=== PATIENT | male | born 1965 | race Caucasian/White ===

== ENCOUNTER 2016-06-13 09:22 | Inpatient (IN) | payer OTHER ==
[~2016-06-13] VITALS: Ht 179.1 cm; Wt 61.6 kg
[~2016-06-13 09:22] MED LIST: SENOKOT S1 TAB PO; TYLENOL DPS325 MG PO; ULTRAM DPS50 MG PO; XARELTO10 MG PO
--- NOTE | 2016-06-21 01:22 | HP ---
ADMIT: 06/13/2016 RM/LOC: 525 [facility] MR#: [id number] 2620 [facility] [address] [place] [phone] [place] [address] [place] [address] History and Physical SEX: M AGE: 51 : 1965 DATE OF SERVICE: CHIEF COMPLAINT: Ileus. HISTORY OF PRESENT ILLNESS: Lul is a delightful 51-year-old, white gentleman with metastatic rectal carcinoma diagnosed in December of 2015. He has known extensive metastatic disease to the liver. He has been working closely with Dr. Mooney with his ongoing treatment. He had been on 1 chemotherapy regimen, but it was ineffective. He was subsequently changed, and he is currently undergoing his chemo at this time. He has been doing relatively well other than chronic fatigue issues. He did develop bilateral PE and DVT back in January of 2016 and was treated with a short course of Lovenox and subsequently now he is on Xarelto. He has been able to work and has done relatively well. He receives iron infusions with Feraheme. He has some mild weight loss, weakness, and neuropathy, but all are manageable. On the day of admission, he notes that he had not been feeling well for the last couple of days. Energy is really zapped. On the day of admission, he had a rather abrupt onset of abdominal pain. This was associated with a very large emesis this morning. He presented to the emergency room for evaluation. CT scan performed verbally showed that he has what appears to be an ileus rather than obstruction. He is admitted at this time for myself covering with Dr. Mooney for IV fluids and continued management. After vomiting, he does feel better. He still has a little right upper quadrant pain from the liver mets and capsular pain, but otherwise things are tolerable. He did receive low dose of Dilaudid 0.5 mg in the emergency room that was rather affective. PAST MEDICAL HISTORY: Rectal carcinoma on 01/10 with mets to the liver after presenting with rectal bleeding, colonoscopy on 01/28/2016 showed a mass at 10 cm from the anal verge, biopsy with tubulovillous adenoma and high-grade dysplasia, CT scan abdomen and pelvis on 01/28/2016 with extensive replacement of the liver with metastatic involvement, liver biopsy on 02/03/2016 consistent with metastatic moderately differentiated adenocarcinoma of the rectum, PET scan on 02/04/2016 with rectal wall thickening and liver mets, baseline CEA 1643, KRAS mutation testing was pending, and I do not really see the results, ongoing chemotherapy with Dr. Mooney, on second-line. MEDICATIONS: Xarelto 20 mg daily. ALLERGIES: NONE. SOCIAL HISTORY: . Four children. His oldest daughter is a nurse practitioner at school. Next, his son is in college at [employer]. His third child, which is a son is a senior in high school and is going to be going to college next year. The final child is an adopted daughter, who is a current 5th grader. Nonsmoker. Rare alcohol. 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 FAMILY HISTORY: No colon cancer. No PEs, although his mother might have had a DVT with one of her pregnancies. No diabetes. Brother and father as well ADMIT: 06/13/2016 RM/LOC: 525 [facility] MR#: [id number] [address] [phone] [place] [address] [place] [address] History and Physical SEX: M AGE: 51 : 1965 as mother with hypertension. No heart disease. REVIEW OF SYSTEMS: He has had some weight loss, neuropathic changes in hands and feet. Continues within a great outlook and is wanting aggressive therapy at this point. PHYSICAL EXAMINATION: VITAL SIGNS: Blood pressure 105/74, pulse 99, temp 96.5, respirations 11, and weight is 143. GENERAL: This is a gentleman with obvious weight loss. He is not jaundiced. Skin is warm to the touch. HEENT: Normocephalic, atraumatic. Anicteric. Mucous membranes appear moist. NECK: Supple without JVD. LUNGS: Clear to auscultation. CARDIOVASCULAR: Regular. ABDOMEN: Tender right upper quadrant and just generalized with deep palpation. GENITOURINARY/RECTAL: Deferred. EXTREMITIES: Without cyanosis, clubbing, or edema. Weight loss noted. LABORATORY DATA: Potassium of 3.6, otherwise labs look pretty unremarkable other than a mild pancytopenia. IMPRESSION: 1. Ileus - verbal on the CT scan from the ER. 2. Rectal cancer on 01/10 with metastasis to the liver, second-line chemotherapy per Dr. Mooney. 3. Nephrolithiasis. 4. Bilateral pulmonary embolism/deep venous thrombosis on 02/10 - Xarelto. 5. Anemia of chronic disease and chronic blood loss. 6. Hypokalemia. 7. Nausea and vomiting. 8. Weight loss. 9. Malnourished due to cancer. ADMIT: 06/13/2016 RM/LOC: 525 [facility] MR#: [id number] [address] [place] [phone] [place] [address] History and Physical SEX: M AGE: 51 : 1965 DISCUSSION: We will go ahead and give him some bowel rest by making him n.p.o. and giving him TPN. We will change the Xarelto over to Lovenox at 60 b.i.d., which is a little bit less than he went home on, but he has had what appears to be some weight loss. Also, need to watch with his bleeding. Supplement potassium and otherwise will follow closely with Dr. Mooney. PLAN: See chart. Joana Wolfe MD/ adonis JOB #: [id number] CC: Joana Wolfe, Attending Physician Joana Wolfe, Family Physician MD Michael Telles PA-C
--- NOTE | 2016-07-07 10:44 | CO ---
ADMIT: 06/13/2016 RM/LOC: 525 [facility] MR#: [id number] 2620 [facility] [address] [place] [phone] [place] [address] [place] [address] Consultation SEX: M AGE: 51 : 1965 DATE OF CONSULTATION: 06/17/2016 ATTENDING PHYSICIAN: Joana Wolfe CONSULTING PHYSICIAN: Dale Bravo MD CHIEF COMPLAINT: Nausea, abdominal distention, probable bowel obstruction, known metastatic colorectal cancer. HISTORY OF PRESENT ILLNESS: This is a pleasant 51-year-old male patient, well known to me and my surgical group for his fairly recent diagnosis of metastatic colorectal cancer. The patient has been undergoing chemotherapy, which really did not have a great response to his chemo, so as recently as, I believe 14 days ago, he was started on a different regimen which included Avastin. The patient was admitted on Tuesday, so about 4 days ago with complaints of worsening abdominal pain and distention. He had a CT scan done on Tuesday on the , and another scan done today. The scan today shows worsening small bowel distention and some worsening thickening of the small bowel, increased ascites, and probable obstruction of his colon at the level of the tumor in his rectum. He has been passing some liquid stool but is pretty minimal amount. He is more bloated, more nauseated, more uncomfortable, particularly in his epigastric region. He really has not vomited yet, has not really eaten anything of substance for almost a week now. He has been on TPN since he has been in the hospital. He has been pretty neutropenic and is receiving, I believe, some Neupogen for that and his white count was finally at around 3000 today. He has been on full strength Lovenox for recent DVT also, that just was held tonight, so I was asked to see him in surgical consultation to discuss possible surgical options for this bowel obstruction, which appears to be worsening. PAST MEDICAL HISTORY: All well outlined on the chart. ASSESSMENT: Worsening small bowel obstruction with worsening thickening of small bowel, probable obstruction at the colorectal tumor in the rectosigmoid region. PLAN: I had a long discussion with the patient and his and several other family members this afternoon regarding treatment options. They are realistic and understands the situation he is in and this is not a curable cancer. In fact, he has really not responded well to the chemo all along and the tumor really has not responded all along. He has more ill in this hospitalization and more uncomfortable and understands he cannot really keep going on like this either. We discussed surgical options, exploratory laparotomy with probable rectosigmoid resection versus just diverting colostomy versus possible small bowel resection if he has metastatic lesions causing obstruction elsewhere. We talked about the potential complications of that to be wound-healing problems, problems with the colostomy, potential rectal stump blow out, given the Avastin that he just received a couple of weeks ago. Things just will not heal very well or normally with that also increased risk ADMIT: 06/13/2016 RM/LOC: 525 [facility] MR#: [id number] [address] [place] [phone] [place] [address] Consultation SEX: M AGE: 51 : 1965 of bleeding. He has a DVT and has been on Lovenox for that but he would likely need an IVC filter, prior to surgery to help reduce the risk of PE. He is pretty frail at this point, and so he understands that he is at high risk for the operation, although I think we get him through the operation okay. It is just a situation of getting through the recovery process afterwards in the healing process. He is realistic and understands that surgery ultimately will not increase his length of survival. In fact, it will limit or delay him getting back on chemotherapy. I think as of today, he is focusing a little bit more on quality of life rather than his length of survival and so at this point, he does not want to go through an operation. He is not interested in surgery. He is agreeable to an NG tube to help alleviate some of the discomfort and distention of his abdomen but he wants to hold off on surgical intervention at this time. I think that is a reasonable decision and at this point, we will just check on him again tomorrow and re-evaluate things. I have discussed this case also Dr. Wolfe as well as with Dr. Mooney, so they are aware of the discussion that I had with him. Dale Bravo MD/ adonis JOB #: [id number] CC: Joana Wolfe, Attending Physician Joana Wolfe, Family Physician
--- NOTE | 2016-07-09 12:16 | CO ---
ADMIT: 06/13/2016 RM/LOC: 525 [facility] MR#: [id number] [address] [facility] [address] [place] [phone] [place] [address] [place] [address] Consultation SEX: M AGE: 51 : 1965 DATE OF CONSULTATION: 06/13/2016 ATTENDING PHYSICIAN: Joana Wolfe CONSULTING PHYSICIAN: Del Mooney MD REASON FOR CONSULTATION: Metastatic colon cancer, abdominal pain. 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 He has had a very unfortunate course where basically he has not responded to any therapy thus far. He was found have a rectal tumor that was invasive adenocarcinoma. It had been causing some rectal bleeding that led to his original diagnosis back in January 2016. On his staging studies, he was found to have extensive liver metastases. We treated him with up-front FOLFOX therapy with basically stable disease after 4 cycles, and then after 8 cycles had evidence of fairly significant disease progression. This was discovered just 2 weeks ago. I therefore switched his treatment to FOLFIRI and Avastin, which he received for the first time on 06/04/2016. He now presents to the emergency room with fairly severe abdominal pain. I have been talking with him several times over the weekend now with his complaints and he finally was willing to come to the emergency room. Here, he underwent a CT scan and was found to have an ileus. He is therefore being admitted to Dr. Wolfe's service for further care. He is really quite uncomfortable. He has had some mild nausea and vomiting here in the emergency room. He denies any obvious bleeding. He has remained on his Xarelto therapy for his prior pulmonary embolism. At this point, he still wants to be treated with aggressive care. PAST MEDICAL HISTORY: 1. Pulmonary embolism and DVT, treated now with chronic anticoagulation with Xarelto. 2. Rectal cancer. MEDICATIONS: Reviewed in his chart. ALLERGIES: REVIEWED IN HIS CHART. SOCIAL HISTORY: The patient is . He has 4 children. 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 FAMILY HISTORY: He is not aware of any malignancies in his family. REVIEW OF SYSTEMS: See HPI. Other complete review of systems was obtained and was negative. PHYSICAL EXAMINATION: VITAL SIGNS: Temp 97, pulse 73, respirations 18, blood pressure 113/77. GENERAL: The patient is in no acute distress, although with moving around, he ADMIT: 06/13/2016 RM/LOC: 525 [facility] MR#: [id number] [address] [place] [phone] [place] [address] Consultation SEX: M AGE: 51 : 1965 does have some discomfort. He is alert and oriented and provides me a good history. HEENT: Mucous membranes are moist. No oral lesions are seen. Extraocular muscles are intact. Pupils are reactive and symmetrical. NECK: Without adenopathy or JVD. HEART: Regular rate and rhythm without murmur. LUNGS: Clear to auscultation bilaterally without any crackles or wheezes. ABDOMEN: Soft but distended and tender throughout with still some positive bowel sounds. EXTREMITIES: No edema, rashes, lesions or adenopathy is appreciated. LABORATORY DATA: Metabolic panel is unremarkable with an albumin of 1.5 and slight elevation in his alkaline phosphatase of 299. White count is 2.9, hemoglobin 11.5, platelets 127, neutrophils 2.3. CT scan is reviewed. IMPRESSION AND RECOMMENDATIONS: Abdominal pain with ileus in the setting of metastatic colon cancer, on recent chemotherapy with FOLFIRI and Avastin. I talked to the patient at length today. I am certainly worried about his symptoms, but at least the CT scan does not suggest a mechanical obstruction. He still has his rectal tumor in place and surgical intervention will be quite tricky with his recent Avastin. We will follow his blood counts closely. We will give him just basically aggressive supportive care measures for treatment of his ileus. His next chemotherapy is due on Tuesday, but this will possibly be delayed. He still is in the mindset of being aggressive with his care. I appreciate this consultation. Del Mooney MD/ adonis JOB #: [id number] CC: Joana Wolfe, Attending Physician Joana Wolfe, Family Physician
--- NOTE | 2016-07-25 17:08 | ER ---
ADMIT: 06/13/2016 RM/LOC: 517 [facility] MR#: [id number] [address] [facility] [address] [place] [phone] [place] [address] [place] [address] Emergency Room Report SEX: M AGE: 51 : 1965 DATE: 06/13/2016 HISTORY OF PRESENT ILLNESS: A 51-year-old who comes to the Emergency Department with chief complaint of abdominal pain times past several days of sudden onset. He has had a large emesis and then the pain resolved. He has a history of metastatic colon cancer. He initially described the pain as severe, is currently mild. It is diffuse across the abdomen. There is nausea and vomiting associated with it. He had recently been seen by Dr. Mooney. PAST MEDICAL HISTORY: Metastatic colon cancer. PHYSICAL EXAMINATION: GENERAL: Reveals a 51-year-old gentleman, in mild amount of distress. HEAD: Normocephalic. LUNGS: Clear to auscultation. CARDIOVASCULAR: Regular rate and rhythm. ABDOMEN: Diffusely tender. Generalized with increased bowel tones. No bloating was noted. SKIN: Unremarkable. 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 LABORATORY DATA: Pertinent lab was white count of 2.9, hemoglobin 11.5, platelets 97,000, potassium 3.6, alkaline phosphatase was 289, glucose was 16, lactic acid 1.7. CT revealed an ileus. The patient was admitted with the same. DIAGNOSIS: Ileus. Antonio Mata MD/ adonis JOB #: [id number] CC: Joana Wolfe MD, Attending Physician Joana Wolfe MD, Family Physician
--- NOTE | 2016-07-31 09:22 | DS ---
ADMIT: 06/13/2016 RM/LOC: 517 [facility] MR#: [id number] 2620 [facility] [address] [place] [phone] [place] [address] [place] [address] Discharge Summary SEX: M AGE: 51 : 1965 ADMISSION DATE: 06/13/2016 DISCHARGE DATE: 06/26/2016 FINAL DIAGNOSES: 1. Ileus. 2. Metastatic colon cancer. 3. Severe protein calorie malnutrition. 4. Polyneuropathy. 5. Neutropenia. 6. Anemia. 7. Hypokalemia. 8. History of PE, DVT (pulmonary embolism, deep venous thrombosis). HOSPITAL COURSE: The patient was admitted. Was treated for his ileus and then after symptoms did not improve, it was decided the patient really was not a candidate for any further treatment. He was kept comfortable. He had palliative care. Was kept on IV continuous pain medication. Overall, was stable and then did on 06/26. Sylvia Morales MD/ ajf JOB #: [id number] CC: Joana Wolfe MD, Attending Physician Joana Wolfe MD, Family Physician
== END 2016-06-26 18:06 | disposition expired | DRG 374 ==
LOC: ER 09:22 → 5MS 11:53
PROVIDERS: ADMIT Internal Medicine
PROC: 3E0436Z Introduction of Nutritional Substance into Central Vein, Percutaneous Approach (ICD-10-PCS; principal; 2016-06-13)
DX: C19 Malignant neoplasm of rectosigmoid junction (principal); E43 Unspecified severe protein-calorie malnutrition; C78.7 Secondary malignant neoplasm of liver and intrahepatic bile duct; Z51.5 Encounter for palliative care; G62.9 Polyneuropathy, unspecified; D70.9 Neutropenia, unspecified; D63.0 Anemia in neoplastic disease; E87.6 Hypokalemia; Z86.718 Personal history of other venous thrombosis and embolism; Z86.711 Personal history of pulmonary embolism; Z79.01 Long term (current) use of anticoagulants; Z66 Do not resuscitate